=== PATIENT | male | born 1980 | race Caucasian/White ===

== ENCOUNTER 2016-05-05 08:12 | Emergency (ER) ==
[2016-05-05 08:25] VITALS: BP 157/83
[2016-05-05] MEDS ORDERED: BACITRACIN OINTMENT TOP ONE (09:51)
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
[2016-05-05] MEDS ORDERED: BOOSTRIX VACCINE IM ONE (10:30)
== END 2016-05-05 11:20 | disposition home or self-care (01) ==
LOC: P.ED 08:12
DX: T20.26XA Burn of second degree of forehead and cheek, initial encounter (principal); T20.24XA Burn of second degree of nose (septum), initial encounter; X08.8XXA Exposure to other specified smoke, fire and flames, initial encounter; F17.210 Nicotine dependence, cigarettes, uncomplicated; Z71.6 Tobacco abuse counseling; Z23 Encounter for immunization
CPT/HCPCS: 90471; 90715